=== PATIENT | female | born 1935 | race Caucasian/White ===

== ENCOUNTER 2019-04-28 07:16 | Day surgery (SDC) | payer BC ==
[2019-04-27 14:12] VITALS: BMI 28.3
[2019-04-28 08:31] VITALS: TEMP 98.5
[2019-04-28 10:59] VITALS: BP 163/52; PULSE 63
--- NOTE | 2019-04-29 18:07 | PATH ---
Surgical Pathology Report Patient Name: STEPHEN MARQUEZ [facility]. Rec. #: [id number] /Age/Gender: 1935 (Age: 83) / F Account: [id number] Location: U-ENDOSCOPY Taken: 04/28/2019 Received: 04/28/2019 Reported: 04/29/2019 Physicians: Omega Sanchez M.D. Specimen(s) Received A: RIGHT COLON POLYPS B: LEFT COLON POLYP Clinical History History: Adenoma Postoperative diagnosis: Polyps, diverticulosis Final Diagnosis A. COLON, RIGHT, POLYPS, POLYPECTOMY: TUBULAR ADENOMA(S). B. COLON, LEFT, POLYP, POLYPECTOMY: TUBULAR ADENOMA. Electronically Signed Delmi Jones M.D. Gross Description A. Received in formalin, labeled "colon polyps" are 3 abreu, irregular portions of soft tissue ranging in size from 0.1-0.5 cm. in greatest dimension. The specimens are submitted in toto in one cassette. B. Received in formalin, labeled "left colon polyp" is a abreu, irregular portion of soft tissue measuring 0.3 cm. in greatest dimension. The specimen is submitted in toto in one cassette. MLSZ/04/28/2019 sanml/04/28/2019
== END 2019-04-28 09:50 | disposition home or self-care (01) ==
LOC: JASU-ENDO 07:16
PROVIDERS: ATTEND Internal Medicine Gastroenterology
PROC: 0DBM8ZX Excision of Descending Colon, Via Natural or Artificial Opening Endoscopic, Diagnostic (ICD-10-PCS; 2019-04-28)
PROC: 0DBK8ZX Excision of Ascending Colon, Via Natural or Artificial Opening Endoscopic, Diagnostic (ICD-10-PCS; principal; 2019-04-28 08:45)
DX: Z86.010 Personal history of colon polyps (principal); D12.2 Benign neoplasm of ascending colon; D12.4 Benign neoplasm of descending colon; I10 Essential (primary) hypertension; E11.9 Type 2 diabetes mellitus without complications; E78.5 Hyperlipidemia, unspecified; Z85.820 Personal history of malignant melanoma of skin; K57.30 Diverticulosis of large intestine without perforation or abscess without bleeding
CPT/HCPCS: 88305-TC